=== PATIENT | male | born 1980 | race Caucasian/White ===

== ENCOUNTER 2024-08-05 06:30 | Emergency (ER) | payer MEDICAID ==
[~2024-08-05] VITALS: Ht 170.2 cm; Wt 79.4 kg
[2024-08-05 06:41] VITALS: BP_SYST 121; PULSE 90; RESP 16; TEMP 97.2; O2SAT 96
[2024-08-05] MEDS: ACETAMINOPHEN 500 MG TABLET PO ONE (07:28)
[2024-08-05 08:27] VITALS: BP_SYST 119; PULSE 85; RESP 20; TEMP 97.8; O2SAT 97
== END 2024-08-05 08:28 | disposition home or self-care (01) ==
LOC: SED 06:30
DX: S52.691A Other fracture of lower end of right ulna, initial encounter for closed fracture (principal); Z88.6 Allergy status to analgesic agent; Y04.0XXA Assault by unarmed brawl or fight, initial encounter; Y93.89 Activity, other specified; Y92.89 Other specified places as the place of occurrence of the external cause; Y99.8 Other external cause status
CPT/HCPCS: 99283